=== PATIENT | male | born 1950 | race Caucasian/White ===

== ENCOUNTER 2019-01-17 12:24 | Observation (INO) ==
[2019-01-17] MEDS ORDERED: ASPIRIN PO ONE (12:36)
--- NOTE | 2019-01-17 13:04 | Diag Imaging Result Doc PS360 ---
EXAM: CHEST-2 VIEWS 01/17/2019 HISTORY: chest pain TECHNIQUE: PA and lateral chest COMMENT: There is no evidence of acute cardiac or pulmonary disease. Compared to 08/12/2017 there has been no significant change. IMPRESSION: Stable chest. Electronically signed by Dwight Garvin 01/17/2019 1:01 PM
[2019-01-17] MEDS ORDERED: PEPCID IV ONE (13:13)
[2019-01-17] MEDS ORDERED: TYLENOL PO ONE (13:13)
[2019-01-17] MEDS ORDERED: NS 1,000 ML IV ONE (13:14)
[2019-01-17] MEDS ORDERED: SODIUM CHLORIDE 0.9% INJ ONE ×2 (13:14)
[2019-01-17] MEDS ORDERED: PROTONIX IV ONE (13:14)
--- NOTE | 2019-01-17 13:15 | EKG Report ---
Test Performed on : 01/17/2019 12:27:50 PM Test Reason : CP Blood Pressure : / mmHG Vent. Rate : 103 BPM Atrial Rate : 103 BPM P-R Int : 150 ms QRS Dur : 094 ms QT Int : 334 ms P-R-T Axes : 048 023 035 degrees QTc Int : 437 ms Sinus tachycardia. Otherwise normal ECG When compared with ECG of 12-APR-2017 12:22, No significant change was found Unconfirmed Result
[2019-01-17 13:24] LABS: BASO% 0.4 % (0.0-0.8); EOS% 5.2 % (0.0-10.0); HEMATOCRIT 42.8 % (42.0-52.0); HEMOGLOBIN 14.7 g/dL (14.0-18.0); IMM GRAN% 0.2 % (0.0-0.5); LYMPH# 1.89 X1000 (1.2-3.4); LYMPH% 23.2 % (20.5-51.1); MCH 29.7 PG (27-31); MCHC 34.3 g/dL (33-37); MCV 86.5 FL (81-99); MONO# 0.91 X1000 (0.11-0.59); MONO% 11.2 % (1.7-9.3); MPV 10.4 FL (7.4-10.4); NEUT# 4.87 X1000 (1.4-6.5); NEUT% 59.8 % (42.2-75.2); PLT 272 X1000 (130-400); RBC 4.95 XMIL (4.7-6.1); WBC 8.14 X1000 (4.8-10.8)
[2019-01-17 13:25] LABS: BASO# 0.03 X1000 (0.0-0.2); EOS# 0.42 X1000 (0.0-0.7); IMM GRAN# 0.02 X1000 (0.0-0.04)
[2019-01-17 13:43] LABS: INR 0.94; PROTIME 13.4 Seconds (11.0-16.0)
[2019-01-17 13:44] LABS: PTT 30.3 Seconds (22.3-41.8)
[2019-01-17 13:48] LABS: AGAP 13; ALBUMIN 4.5 g/dL (3.5-5.0); ALKALINE PHOSPHATASE 73 U/L (32-122); BUN 21 mg/dL (8-22); CALCIUM 9.4 mg/dL (8.8-10.2); CHLORIDE 99 mmol/L (98-107); COSMO 277; ESTIMATED GFR > 60; GLUCOSE 98 mg/dL (70-104); GOT 17 U/L (10-34); GPT 13 U/L (10-44); POTASSIUM 3.5 mmol/L (3.5-5.1); SODIUM 137 mmol/L (136-145); TCO2 25 mmol/L (25-35); TOTAL BILIRUBIN 0.43 mg/dL (0.20-1.00); TOTAL PROTEIN 6.8 g/dL (6.3-8.3)
[2019-01-17 13:50] LABS: CK PROFILE 273 U/L (24-204)
[2019-01-17 14:03] LABS: CK INDEX 2.2 (0.0-2.5); CK-MB 6.04 ng/mL (0.0-5.0)
--- NOTE | 2019-01-17 14:40 | PROVIDER DOCUMENTATION ---
This chart was entered by Coty Shay Scribe, acting as scribe for Nilay De Leon MD. HPI-Chest Pain - General Chief Complaint: Chest Pain Stated Complaint: CP/JAW PAIN Time Seen by Provider: 01/17/19 13:05 Source: patient Allergies/Adverse Reactions: Patient Allergies Allergy/AdvReac Type Severity Reaction Status Date / Time hydrocodone Allergy Unknown Verified 01/17/19 12:40 morphine Allergy Unknown Verified 01/17/19 12:40 propoxyphene [From Darvon] Allergy Unknown Verified 01/17/19 12:40 sodium pentathol Allergy Unknown Uncoded 01/17/19 12:35 Home Medications: Home Medication List Medication Instructions Recorded Confirmed Last Taken Type Losartan/Hydrochlorothiazide 1 each PO DAILY 03/25/12 04/12/17 04/11/17 21:00 History [Hyzaar 100-12.5 Tablet] Tadalafil [Cialis] 2.5 mg PO HS 03/25/12 04/12/17 04/11/17 21:00 History Potassium Chloride 10 meq PO HS 07/05/15 04/12/17 04/11/17 21:00 History Methocarbamol 750 mg PO HS 04/12/17 04/12/17 04/11/17 21:00 History Naproxen/Esomeprazole Mag [Vimovo 1 tab PO BID 04/12/17 04/12/17 04/11/17 21:[address] 500-20 mg Tablet] Zolpidem [Ambien] 10 mg PO QHS 04/12/17 04/12/17 04/11/17 21:00 History Azithromycin [Zithromax Z-Long] 250 mg PO DIRECTED #1 pkg 08/12/17 Unknown Rx Guaifenesin/D-Methorphan Hb/PE 1 ea PO Q4-6H PRN PRN #20 tab 08/12/17 Unknown Rx [Deconex Dmx Tablet] Prednisone 20 mg PO DAILY #6 tab 08/12/17 Unknown Rx Methocarbamol [Robaxin-750] 750 mg PO Q6HR PRN #20 tab 05/08/18 Unknown Rx - History of Present Illness-CP Nature of Presenting Problem: [id number] presents to ED cc sharp chest pain that started at 11:30am while at work, subsided and then pain in his left ear and shoulder about 10mins later. Pt also reports SOB, severe headache and fatigue. Pt denies N/V/D. Upon exam pt reports only his head hurts. Pt has hx of HTN, GERD and arthritis. Pt is A&Ox3 and n ontoxic in appearance. 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 denies: chills, fever Eyes: reports: no symptoms reported Ears, Nose, Mouth & Throat: reports: no symptoms reported Cardiovascular: reports: see HPI, chest pain. denies: irregular heart rate, palpitations, syncope Respiratory: reports: see HPI, shortness of breath. denies: cough, wheezing Gastrointestinal: reports: no symptoms reported Genitourinary: reports: no symptoms reported Musculoskeletal: reports: no symptoms reported Integumentary: reports: no symptoms reported Neurological: reports: see HPI, headache/migraines. denies: seizure, syncope Psychiatric: reports: no symptoms reported Endocrine: reports: no symptoms reported Hematologic/Lymphatic: reports: no symptoms reported Allergic/Immunologic: reports: no symptoms reported All Other Systems: Reviewed and Negative Past History - Adult - PAST MEDICAL HISTORY-ADULT Review of Records: reports: Nursing Assessment Review, Medications Reviewed, Social history reviewed & non-contributory. Major Childhood Illnesses: reports: denies history Cardiovascular: reports: HTN Respiratory: reports: denies history Gastrointestinal: reports: GERD Obstetrical/Gynecological: reports: denies history Genitourinary: reports: denies history Musculoskeletal: reports: denies history Neurological: reports: denies history Psychiatric: reports: denies history Endocrine/Immune: reports: denies history Other Conditions: reports: denies history - PRIOR SURGERIES/PROCEDURES Surgical/Procedure History: reports: reviewed, not pertinent, orthopedic (extremity), back/neck (back) - IMMUNIZATION STATUS Childhood Immunizations: See Nurse Assessment Flu Vaccine: See Nurse Assessment - FAMILY HISTORY Family History: reviewed, not pertinent Physical Exam-General - PHYSICAL EXAM-ADULT Initial Vital Signs Reviewed: Yes - CONSTITUTIONAL General Appearance: appears well, alert, no apparent distress. negative: anxious, combative - EYES Eyes: PERRL/EOMI, pink conjunctivae. negative: photophobia - HEAD, EARS, NOSE, MOUTH & THROAT HENMT: normocephalic/atraumatic, moist mucous membranes. negative: angioedema - NECK Neck: non-tender, full range of motion, supple, normal inspection. negative: C- spine tenderness - RESPIRATORY Respiratory: chest non-tender, lungs clear, normal breath sounds, no pleuratic chest pain, no respiratory distress, no accessory muscle use. negative: crackles, rales, rhonchi, stridor, wheezing - CARDIOVASCULAR Cardiovascular: normal peripheral pulses, regular rate, rhythm, no edema, no gallop, no JVD, no murmur. negative: bradycardia, tachycardia - GASTROINTESTINAL (ABDOMEN) Abdominal Exam: normal bowel sounds, soft, no organomegaly, no pulsatile mass, tenderness (LLQ). negative: non tender, distended, guarding, rigid, rebound, hernia, mass - MUSCULOSKELETAL Extremity: normal range of motion, non-tender, normal gait, normal inspection, no pedal edema, no calf tenderness, normal capillary refill, pelvis stable. negative: deformity, erythema, swelling - SKIN Integumentary: normal color, normal turgor, warm/dry. negative: cyanosis, diaphoresis, ecchymosis, erythema, jaundice - PSYCHIATRIC Psych/Mental Status: normal mood/affect, normal thought content, normal thought process, oriented x 3. negative: disoriented x 3, anxious, disheveled, depressed affect Progress - PLAN OF CARE/RESULTS Progress/Plan/Lab Results: Vital Signs - 8 hr 01/17/19 12:31 Temperature 97.9 F Pulse Rate 89 Respiratory Rate 18 Blood Pressure 130/82 O2 Sat by Pulse Oximetry 96 Laboratory Results - last 24 hr 01/17/19 01/17/19 01/17/19 12:50 12:50 12:50 WBC 8.14 RBC 4.95 Hgb 14.7 Hct 42.8 MCV 86.5 MCH 29.7 MCHC 34.3 RDW Std Deviation 13.0 Plt Count 272 MPV 10.4 Immature Gran % (Auto) 0.2 Neut % (Auto) 59.8 Lymph % (Auto) 23.2 [place] % (Auto) 11.2 H Eos % (Auto) 5.2 Baso % (Auto) 0.4 Immature Gran # (Auto) 0.02 Neut # (Auto) 4.87 Lymph # (Auto) 1.89 [place] # (Auto) 0.91 H Eos # (Auto) 0.42 Baso # (Auto) 0.03 PT INR PTT (Actin FS) Sodium 137 Potassium 3.5 Chloride 99 Carbon Dioxide 25 Anion Gap 13 BUN 21 Creatinine 1.0 Estimated GFR/1.73 m2 > 60 BUN/Creatinine Ratio 21 Glucose 98 Calculated Osmolality 277 Calcium 9.4 Total Bilirubin 0.43 AST 17 ALT 13 Alkaline Phosphatase 73 Creatine Kinase 273 H Creatine Kinase Index 2.2 CK-MB (CK-2) 6.04 H Troponin T Mwp-M-Cdyqjhsaobf Pept 13 Total Protein 6.8 Albumin 4.5 Globulin 2.3 Albumin/Globulin Ratio 2.0 01/17/19 01/17/19 12:50 12:50 WBC RBC Hgb Hct MCV MCH MCHC RDW Std Deviation Plt Count MPV Immature Gran % (Auto) Neut % (Auto) Lymph % (Auto) [place] % (Auto) Eos % (Auto) Baso % (Auto) Immature Gran # (Auto) Neut # (Auto) Lymph # (Auto) [place] # (Auto) Eos # (Auto) Baso # (Auto) PT 13.4 INR 0.94 PTT (Actin FS) 30.3 Sodium Potassium Chloride Carbon Dioxide Anion Gap BUN Creatinine Estimated GFR/1.73 m2 BUN/Creatinine Ratio Glucose Calculated Osmolality Calcium Total Bilirubin AST ALT Alkaline Phosphatase Creatine Kinase Creatine Kinase Index CK-MB (CK-2) Troponin T < 0.010 Tia-X-Frqkhmbcefk Pept Total Protein Albumin Globulin Albumin/Globulin Ratio Orders Category Date Time Status Cardiac Monitoring DIRECTED Care 01/17/19 12:37 Active Oxygen Therapy- ED Nursing DIRECTED Care 01/17/19 12:37 Active Saline Loc NOW Care 01/17/19 12:37 Active CHEST-2 VIEWS [RAD] Stat Exams 01/17/19 12:37 Completed CBC WITH ELECTRONIC DIFF [HEME] Stat Lab 01/17/19 12:50 Completed CK PROFILE [SP CHEM] Stat Lab 01/17/19 12:50 Completed COMPREHENSIVE METABOLIC PANEL [CHEM] Stat Lab 01/17/19 12:50 Completed PRO B-NATRIURETIC PEPTIDE Stat Lab 01/17/19 12:50 Completed PROTIME WITH INR [COAG] Stat Lab 01/17/19 12:50 Completed PTT [COAG] Stat Lab 01/17/19 12:50 Completed TROPONIN T Stat Lab 01/17/19 12:50 Completed 0.9% Sodium Chloride Inj [Ns] 1,000 ml Med 01/17/19 13:14 Active IV 200 mls/hr Acetaminophen [Tylenol] Med 01/17/19 13:13 Discontinued 650 mg PO NOW ONE Aspirin Med 01/17/19 12:36 Discontinued 325 mg PO NOW ONE Famotidine [Pepcid] Med 01/17/19 13:13 Discontinued 20 mg IV NOW ONE Pantoprazole [Protonix] Med 01/17/19 13:14 Discontinued 40 mg IV NOW ONE Sodium Chloride 0.9% Med 01/17/19 13:14 Discontinued 10 ml INJ NOW ONE Sodium Chloride 0.9% Med 01/17/19 13:14 Discontinued 5 - 10 ml INJ NOW ONE CP/SOB/Palp >45 yrs of Age Stat Oth 01/17/19 12:36 Ordered EKG [EKG] Stat Ther 01/17/19 12:37 Draft Result Diagrams: 01/17/19 12:50 01/17/19 12:50 - EKG 1 Time of EKG reading by physician:: 12:53 EKG Read and Signed by:: Nilay De Leon EKG Interpretation (*Must complete 3 of following elements*): Normal Rate: 103 Rhythm: sinus tachycardia QRS: normal MD Interval: normal - XRAY 1 XRAY: Bilateral XRAY Study: Chest Impression: See EMR Report (IMPRESSION: Stable chest. Electronically signed by Dwight Garvin 01/17/2019 1:01 PM) - CONSULTS/PCP/HOSPITALIST Notification #1 *Consult/PCP/Hospitalist*: MIMI UJDGE FOR DR HENDRICKS Time Discussed: 14:38 Consult Disposition: Admit Departure - Departure Date of Disposition Decision: 01/17/19 Time of Disposition Decision: 14:39 DIAGNOSIS: Chest pain Disposition: ADMITTED INPATIENT 09 Certified Medical Emergency: Emergent Condition: Stable Additional Freetext Instructions: ED Follow Up Instructions: You have been treated by a care provider in the Emergency Department. These instructions are being provided to you so you can have an understanding of how to care for yourself upon discharge. Upon discharge from the Emergency Department, you are responsible for making arrangements for follow-up care by a physician of your choice. Take all prescribed medications as directed. Return to the Emergency Department immediately for any new or worsening symptoms. You may call the Physician Referral phone number at [phone] to obtain a list of Physicians who are taking new patients. Referrals and Follow-Ups: Mickey Mary, [Primary Care Provider] - - Critical Care Note This patient required my direct & personal management of CC.: No Attestation - Physician/ SHALONDA Attestation Patient care was provided by Advanced Practice Provider:: No The physician spent face to face time with patient:: Yes Advanced Practice Provider documentation review:: Supervising physician onsite and consulted in the evaluation and care of this patient. The physician did have a face to face encounter with the patient. This chart was documented by the indicated scribe, (Coty Shay Scribe) and accurately reflects the services I performed and decisions made by me, Nilay De Leon MD, as attested by the provider's signature.
[2019-01-17] MEDS ORDERED: NITROGLYCERIN SL PRN (15:12)
[2019-01-17] MEDS ORDERED: TYLENOL PO PRN (15:12)
[2019-01-17] MEDS ORDERED: ZOFRAN IV PRN (15:12)
[2019-01-17 16:35] LABS: CK INDEX 2.2 (0.0-2.5); CK-MB 6.05 ng/mL (0.0-5.0)
--- NOTE | 2019-01-17 17:45 | ECHO REPORT ---
ORDER DATE: 01/17/2019 INDICATION: Patient with chest pain. M-MODE MEASUREMENTS: Left ventricle end diastole: 4.9. Left ventricle end systole: 3.5. Posterior wall: 1.0. Interventricular septum: 1.0. Left atrium: 4.2. Aortic diameter: 3.7. SUMMARY OF 2-DIMENSIONAL IMAGIN. Left ventricular function is normal. Ejection fraction is estimated at 55%. The study was difficult, and Optison was added to optimize visualization of the endocardium. 2. The right ventricle appears to be at the upper limits of normal. 3. The right atrium and left atrium appear to be grossly within normal range. 4. The mitral valve looks normal. Color flow mapping unremarkable. 5. Pulsed wave Doppler of mitral inflow shows normal E/A ratio. 6. Tissue Doppler of septal and lateral mitral annulus averages 10 cm. 7. There is no diastolic dysfunction. 8. The tricuspid valve shows a very mild degree of regurgitation. 9. The inferior vena cava is suboptimally visualized. 10.Pulmonary pressure is on the order of 26-31 mmHg. 11.The aortic valve has 3 cusps. Color flow mapping unremarkable. There is no aortic stenosis. No regurgitation. 12.The pulmonic valve is grossly normal. There is no pericardial effusion. No mass and no thrombus. 13.The inferior vena cava is not dilated. SUMMARY: This study shows: 1. Normal left ventricular systolic function with ejection fraction of 55%. 2. Normal diastolic function. 3. Unremarkable aortic, mitral, pulmonic and tricuspid valves. 4. Pulmonary pressure 26 mmHg. 5. There is no diastolic dysfunction. No mass, no thrombus. Clinical correlation recommended. cc: Cj Henry MD
[2019-01-17] MEDS: LOVENOX SUBQ SCH (17:47)
--- NOTE | 2019-01-17 18:07 | HISTORY AND PHYSICAL ---
PRIMARY CARE PROVIDER: Dr. Mickey Mary CHIEF COMPLAINT: Chest pain. HISTORY OF PRESENT ILLNESS: Mr. 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 He reports at 11:30 this morning he had a sharp pain that went through his chest. It felt like an ice pick was stabbing him. It lasted 3 to 4 seconds and he had radiating pain up to his ear and then into his left ear into his left shoulder. This occurred over 3 different episodes that lasted all of 30 minutes total. He reported being tired, having a headache and difficulty walking. 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 He denies any dizziness, nausea, vomiting, heart palpitation. He has been chest pain free since this morning. Nothing made it better or worse. Workup in the ED, 1st set of troponins were negative. EKG showed normal sinus rhythm. He does have a strong family history of coronary artery disease. We will admit him on observation status, have Cardiology assess him tomorrow and set him up for an echocardiogram and a stress test on Sunday morning and continue to trend his cardiac enzymes. REVIEW OF SYSTEMS: Twelve-point review of systems completely negative except for those mentioned in HPI. mentioned his stools have changed over the last month from regular daily to 5-6 times a day described as pencil size, no bright red blood, dark blood, diarrhea or constipation. 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 FAMILY HISTORY: Sister with a massive HI who at the age of 55. Father with a HI, at the age of 70. Mom with unknown type of metastatic cancer who in 2007. Uncle with prostate cancer. SOCIAL HISTORY: He lives with his . He works in a warehouse. He quit smoking over 15 years ago. No alcohol or illicit drug use. ALLERGIES: Morphine, hydrocodone, Darvon and sodium Pentothal. HOME MEDICATIONS: Have not been verified and all he can remember off the top of his head is he takes 2 blood pressure medications, Cialis daily, Nexium, Mobic, potassium. PHYSICAL EXAMINATION: VITAL SIGNS: Temperature 97.9 degrees heart rate 84, respirations 22, blood pressure is 130/87, O2 is initially 96% on room air. GENERAL: Mr. Chavez is a pleasant, 68-year-old gentleman who is sitting up in the stretcher in no acute distress. HEENT: Atraumatic, normocephalic. PERRL. NECK: Supple. Trachea midline. CARDIOVASCULAR: S1, S2 appreciated. No murmurs, gallops, rubs noted. RESPIRATORY: Lung sounds clear bilaterally. GASTROINTESTINAL: Soft, nontender, nondistended. Positive bowel sounds 4 quadrants. EXTREMITIES: Negative for edema. No signs of clubbing or cyanosis. NEUROLOGIC: No focal deficits noted. DIAGNOSTIC DATA: X-ray is stable chest. Initial EKG showed sinus tachycardia at 103 beats per minute. LABORATORY DATA: White count 8, hemoglobin and hematocrit 14 and 42, platelet count is 272,000. Sodium 137, potassium 3.5, BUN 21, creatinine 1, blood glucose 98. CK was 273, CK-MB 6.04, troponin less than 0.010. ASSESSMENT AND PLAN: 1. Chest pain rule out. The patient does have a strong family history of cardiac disease. First set of troponin was negative. We will continue on daily aspirin. Check a lipid profile. Continue with nitroglycerin p.r.n. Repeat EKG in the a.m. Check an echocardiogram. Set him up for a stress test on Sunday morning. We will consult Cardiology in the a.m. 2. Hypertension. Continue home medications when verified. 3. Gastroesophageal reflux disease. Continue on proton pump inhibitors. 4. Migraines. Aware. 5. Cerebrovascular accident 12 years ago with some left hand residual weakness. 6. Sinus and allergies. 7. Question change in bowel patten over a month to normal daily to 5-6 times/day pencil size, may need outpatient follow up with GI when cardiac issues looked into 8. Further recommendation to follow physician evaluation, laboratory and diagnostic data. Dictated by EUNICE Sánchez for Dioni Boothe MD Addendum: Patient seen and examined by myself. Agree with EUNICE note. It reflects my assessment and plan. Patient is being admitted to hospital for chest pain. Will trend cardiac enzymes and will order an echocardiogram. Will place him on telemetry. Will monitor patient closely. cc: MD Mickey Bonilla, DO MUÑOZD
--- NOTE | 2019-01-17 19:53 | CARDIOLOGY CONSULTATION ---
DATE: 01/17/2019 REASON FOR CONSULTATION: Cardiology was consulted for chest pain. HISTORY OF PRESENT ILLNESS: Mr. 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 Not associated with any diaphoresis but associated with fatigue and tiredness. He came to the emergency room, was admitted. Electrocardiogram revealed normal sinus rhythm. There was no acute ST-T changes. First set of cardiac enzymes are negative. Prior to this, he has not had similar episodes of chest pain. He has history of hypertension, migraine headaches, and has had significant surgeries in his lower extremities in the past. There are no palpitations. There is no dizziness or syncope. REVIEW OF SYSTEM: A 14-point review of systems was done:Gastrointestinal: There is no history of nausea, vomiting, diarrhea. There is no history of hematemesis or melena. Central nervous system: No focal weakness to suggest a CVA or TIA. Genitourinary: There is no dysuria or hematuria. PAST MEDICAL HISTORY: 1. Hypertension. 2. Migraine. 3. TIA in the past. 4. Joint pains. PAST SURGICAL HISTORY: 1. Bilateral carpal tunnel. 2. Amputation of left foot toes 1 and 2. 3. Right knee replacement. 4. Right shoulder arthroscopy. 5. Back surgery. 6. Cervical disk surgery. ALLERGIES: Hydrocodone, morphine, sodium Pentothal, Darvon. HOME MEDICATIONS: Include losartan hydrochlorothiazide, Cialis, methocarbamol, Naprosyn, Ambien. PHYSICAL EXAMINATION: Vital Signs: Blood pressure 130/87. Cardiovascular System: Normal jugular venous pressure. There no thyromegaly. No carotid bruit. First and second heart sounds were heard. There is no S3, S4, or gallop. Respiratory system: Normal air entry. There is no crepitations or rhonchi. Abdomen: Soft, nontender. There was no guarding or rigidity. Bowel sounds were heard. Central nervous system: Alert and oriented. He was moving all 4 extremities. Extremities: Examination of extremities revealed no pedal edema. LABORATORY DATA: Sodium 137, potassium 3.7, BUN 21, creatinine 1. Troponin was negative. CK-MB 6 with an index of 2.2. WBC 8.14. Hemoglobin 14.7. Hematocrit 42. Platelet count of 272,000. Chest x-ray was unremarkable. ASSESSMENT AND PLAN: Mr. Mickey Chavez is a 68-year-old gentleman with history of hypertension, migraine, multiple joint pains and arthritis who comes with complaints of retrosternal chest discomfort with radiation to the left shoulder and to the left jaw. Currently patient does not complain of any chest pain. PLAN: 1. We will get an echocardiogram to assess cardiac and valvular function. We will get serial cardiac enzymes to rule out infarction. Once his cardiac enzymes are negative we will plan for a stress test to assess for and rule out ischemia. 2. Hypertension. Continue with his medications. 3. He has migraine attacks. Continue with the same. 4. He has gastroesophageal reflux disease. He is on Pepcid and NSAIDs as well for his joint pains. I have not made any other changes to his medication. Thank you for the consult. We will follow hospital course. cc: Mayito Arriaga MD
[2019-01-17] MEDS: PEPCID PO SCH (21:32)
[2019-01-18 00:56] LABS: CK INDEX 2.4 (0.0-2.5); CK-MB 5.09 ng/mL (0.0-5.0)
[2019-01-18 06:34] LABS: BASO# 0.04 X1000 (0.0-0.2); BASO% 0.4 % (0.0-0.8); EOS# 0.38 X1000 (0.0-0.7); EOS% 4.2 % (0.0-10.0); HEMATOCRIT 46.1 % (42.0-52.0); HEMOGLOBIN 15.8 g/dL (14.0-18.0); LYMPH# 1.57 X1000 (1.2-3.4); LYMPH% 17.4 % (20.5-51.1); MCH 30.2 PG (27-31); MCHC 34.3 g/dL (33-37); MCV 88.1 FL (81-99); MONO# 0.86 X1000 (0.11-0.59); MONO% 9.6 % (1.7-9.3); MPV 10.3 FL (7.4-10.4); NEUT# 6.15 X1000 (1.4-6.5); NEUT% 68.4 % (42.2-75.2); PLT 229 X1000 (130-400); RBC 5.23 XMIL (4.7-6.1); RDW 13.1 % (11.5-14.5)
--- NOTE | 2019-01-18 06:52 | EKG Report ---
Test Performed on : 01/18/2019 06:16:04 AM Test Reason : CP Blood Pressure : / mmHG Vent. Rate : 071 BPM Atrial Rate : 071 BPM P-R Int : 168 ms QRS Dur : 098 ms QT Int : 382 ms P-R-T Axes : 041 027 051 degrees QTc Int : 415 ms Normal sinus rhythm. Normal ECG When compared with ECG of 17-JAN-2019 12:27, (Unconfirmed) No significant change was found Confirmed by Jake Woodson MD ([id number]) on 01/18/2019 9:14:24 PM
[2019-01-18 06:54] LABS: AGAP 9; BUN 20 mg/dL (8-22); CALCIUM 9.2 mg/dL (8.8-10.2); CHLORIDE 98 mmol/L (98-107); CHOLESTEROL 159 mg/dL (0-200); COSMO 271; CREATININE 1.1 mg/dL (0.7-1.2); ESTIMATED GFR > 60; GLUCOSE 109 mg/dL (70-104); HDL 29 mg/dL (35-55); LDL 98 mg/dL; MAGNESIUM 2.1 mg/dL (1.5-2.7); POTASSIUM 3.7 mmol/L (3.5-5.1); SODIUM 134 mmol/L (136-145); TCO2 27 mmol/L (25-35); TRIGLYCERIDES 159 mg/dL (39-160); VLDL 32 mg/dL
[2019-01-18] MEDS ORDERED: PRILOSEC PO SCH (07:00)
--- NOTE | 2019-01-18 07:37 | Diag Imaging Result Doc PS360 ---
CHEST-PORTABLE - 01/18/2019 INDICATION: Chest Pain COMPARISON: 01/17/2019 FINDINGS: The lungs are normally expanded and clear. Heart size and mediastinal contours are normal. No pneumothorax or pleural effusion. IMPRESSION: Negative exam. Electronically signed by Johan Ackerman 01/18/2019 7:35 AM
[2019-01-18] MEDS: PEPCID PO SCH ×2 (09:42→20:26)
[2019-01-18] MEDS: ASPIRIN PO SCH (09:42)
[2019-01-18] MEDS: DILAUDID IV PRN (10:33)
--- NOTE | 2019-01-18 16:07 | EKG Report ---
Test Performed on : 01/18/2019 10:44:27 AM Test Reason : cp Blood Pressure : / mmHG Vent. Rate : 091 BPM Atrial Rate : 091 BPM P-R Int : 162 ms QRS Dur : 098 ms QT Int : 346 ms P-R-T Axes : 069 025 033 degrees QTc Int : 425 ms Normal sinus rhythm. Normal ECG When compared with ECG of 18-JAN-2019 06:16, (Unconfirmed) No significant change was found Confirmed by Jake Woodson MD ([id number]) on 01/18/2019 9:15:02 PM
[2019-01-18] MEDS: LOVENOX SUBQ SCH (17:12)
--- NOTE | 2019-01-18 17:34 | PROGRESS NOTE ---
DATE: 01/18/2019 SUBJECTIVE: The patient is still having some intermittent chest pain. OBJECTIVE: vital signs: Blood pressure 135/80, heart rate of 85, respiratory rate 20, temperature 97 degrees, and O2 saturation of 94% on room air. Cardiovascular: Regular rate and rhythm. Pulmonary: Bilateral breath sounds. Clear to auscultation. Gastrointestinal: Soft, nontender, nondistended. Bowel sounds are positive. LABORATORY DATA: Really unremarkable. STUDIES: Echocardiogram showed an EF of 55%, normal diastolic dysfunction. It was really normal. PROBLEM LIST: 1. Chest pain, possible unstable angina. We are waiting for a stress test on Sunday and we are in a holding pattern until then. 2. Hypertension. We will continue his regular medications and follow. 3. Gastroesophageal reflux disease. We will continue Pepcid and avoid presumably NSAIDS and continue to monitor. DISPOSITION: Once we can get noninvasive testing completed, then we should be able to work on getting him home. If testing is negative, then we will decide to continue treatment at home. Consider outpatient GI evaluation. cc: Humberto Green MD
[2019-01-18 19:36] LABS: CK INDEX 1.6 (0.0-2.5); CK-MB 3.75 ng/mL (0.0-5.0)
[2019-01-18] MEDS: ROBAXIN PO SCH (20:26)
[2019-01-18] MEDS: FLOMAX PO SCH (20:26)
[2019-01-19] MEDS: ASPIRIN PO SCH (08:16)
[2019-01-19] MEDS: PEPCID PO SCH ×2 (08:16→21:13)
[2019-01-19] MEDS ORDERED: NEXIUM PO SCH (09:00)
[2019-01-19] MEDS: MOBIC PO SCH (17:02)
[2019-01-19] MEDS: KLOR-CON PO SCH (17:02)
[2019-01-19] MEDS: NS 1,000 ML IV SCH (17:03)
[2019-01-19] MEDS: LOVENOX SUBQ SCH (17:03)
--- NOTE | 2019-01-19 17:10 | PROGRESS NOTE ---
DATE: 01/19/2019 SUBJECTIVE: He really has no major complaints. OBJECTIVE: Vitals: Blood pressure is 136/78, heart rate of 80, respiratory rate 18, temperature 97.9 degrees, 97% on room air. Cardiovascular: Regular rate and rhythm. Pulmonary: Bilateral breath sounds. Clear to auscultation. GI: Soft, nontender, nondistended. Bowel sounds are positive. LABORATORY DATA: White count is 9, hemoglobin and hematocrit 15 and 46, platelets 229. Basic was normal. LDL was only 98. PROBLEM LIST: 1. Atypical chest pain. His workup has been essentially negative, but we will continue to monitor. We are awaiting stress test tomorrow. 2. Hypertension. Appears to be stable. Continue medications. 3. Gastroesophageal reflux disease. He is on Prilosec which we may bump up now. He is specifically requesting his Mobic, which we will resume, but if his cardiac workup is negative, we will send him to GI for evaluation for EGD. DISPOSITION: Anticipate discharge tomorrow if stable. cc: Humberto Green MD
[2019-01-19] MEDS ORDERED: PNEUMOVAX 23 IM ONE (19:00)
[2019-01-19] MEDS: FLOMAX PO SCH (21:12)
[2019-01-19] MEDS: ROBAXIN PO SCH (21:13)
[2019-01-20] MEDS ORDERED: PRILOSEC PO SCH (07:00)
[2019-01-20] MEDS ORDERED: CARDIZEM CD PO SCH (09:00)
[2019-01-20] MEDS ORDERED: HYDROCHLOROTHIAZIDE PO SCH (09:00)
[2019-01-20] MEDS ORDERED: MICARDIS PO SCH (09:00)
[2019-01-20] MEDS: NS 1,000 ML IV SCH (09:33)
[2019-01-20] MEDS ORDERED: LEXISCAN ONE (13:00)
--- NOTE | 2019-01-20 15:04 | Diag Imaging Result Document ---
PROCEDURE NAME: MYOCARDIAL PERF SCAN, STR/REST - 01/20/2019 INDICATION: This is a 68-year-old male with chest pain. DESCRIPTION OF PROCEDURE: The patient came into the nuclear lab and received a rest injection of technetium 99 sestamibi 15.3 mCi. Multiple tomographic views of the cardiac structures were obtained at rest. Subsequently the patient underwent a Lexiscan infusion 0.4 mg and at peak infusion was injected with technetium 99 sestamibi 42.3 mCi. Multiple tomographic views of the cardiac structures were obtained following completion of the exercise protocol. SUMMARY OF ELECTROCARDIOGRAPHIC PORTION OF THE STUDY: Resting ECG shows sinus rhythm at rate of 75 beats per minute. Resting blood pressure is 136/77 Resting ECG shows sinus rhythm with an isolated PVC. During the infusion, the heart rate increased to a maximum of 104 beats per minute. Blood pressure went up to 139/67. The ECG showed no significant changes. The patient reported no chest pain, shortness of breath or palpitations. Occasional PVCs were noted. Following the completion of the test, the heart rate and blood pressure returned back to baseline. CONCLUSIONS: In summary, electrocardiographic response to walking Lexiscan protocol is deemed to be unremarkable. SUMMARY OF MYOCARDIAL PERFUSION PORTION OF THE STUDY: Poststress tomographic views of the left ventricle showed normal homogeneous distribution of radiotracer throughout the entire left ventricular myocardium. There is no evidence of any postexercise defect. The rest images showed normal perfusion. The polar plots revealed the same. There is no evidence of neither inducible ischemia nor myocardial scar. Gated SPECT shows normal left ventricular systolic function. Ejection fraction is estimated at 74% with normal ventricular volumes and no wall motion abnormality. Lung/heart ratio is normal. TID is normal. CONCLUSIONS: In summary, this study showed: 1. Unremarkable electrocardiographic response to infusion of Lexiscan. 2. Normal poststress myocardial perfusion scan. There is no scintigraphic evidence of pharmacologically induced myocardial ischemia. 3. Normal left ventricular systolic function. Ejection fraction is estimated at 74% with normal ventricular volumes and no wall motion abnormality. 4. This study represents a low risk for ischemic events. cc: Cj Henry MD
[2019-01-20 15:43] VITALS: BP 141/71
[2019-01-20] MEDS: KLOR-CON PO SCH (15:45)
[2019-01-20] MEDS: PEPCID PO SCH (15:46)
[2019-01-20] MEDS: ASPIRIN PO SCH (15:46)
[2019-01-20] MEDS: DILAUDID IV PRN (15:47)
[2019-01-20] MEDS: LOVENOX SUBQ SCH (15:47)
[2019-01-20] MEDS: MOBIC PO SCH (15:47)
[2019-01-20] MEDS ORDERED: G.I. COCKTAIL PO ONE (16:24)
--- NOTE | 2019-01-21 13:42 | DISCHARGE SUMMARY ---
ADMISSION DATE: 01/17/2019 DISCHARGE DATE: 01/20/2019 DISCHARGE DIAGNOSES: 1. Atypical chest pain likely noncardiac. 2. Gastroesophageal reflux disease, possibly uncontrolled. PROCEDURES: None. CONSULTATIONS: Cardiology. HISTORY: Briefly, this is a 68-year-old male with history of hypertension who comes in with chest pain left-sided. His workup was negative. EKG and cardiac enzymes. Cardiology was consulted, and they recommended a cardiac workup. He underwent myocardial perfusion scan, which showed no radiotracer deficits or defects. EF was 74%, and negative for any reversibility. His echocardiogram showed an EF of 55%. Otherwise unremarkable. DISCHARGE PLAN: He was discharged on the . We will encourage him to follow up with Dr. Karyna NAGEL for endoscopy. I increased his Nexium to twice a day, and continue Flomax 0.4 daily, Cardizem 120 daily, Soma 750 at bedtime, telmisartan hydrochlorothiazide 40/12.5, Klor-Con 20 daily, and Zantac 150 b.i.d. We will likely at this point, GERD/gastric is the most likely diagnosis. Encouraged him to stop NSAIDs and reflux precautions. Follow up with GI for outpatient endoscopy. cc: MD Mickey Lyn DO Manish Arora, MD MTDTyson
== END 2019-01-20 17:27 | disposition home or self-care (01) ==
LOC: 4N 12:24 → ED 12:24 → SUATTDRO 12:25
PROVIDERS: ATTEND Internal Medicine
CPT/HCPCS: 71010; 71020; 71045; 71046; 78452; 80048; 80053; 80061; 82550; 82553; 83735; 83880; 84484; 85025; 85610; 85730; 93005; 93010; 93017; 93306; 94761; 96361; 96374; 99285; A9270; A9500; C8929; C9113; J1170; J1650; J2785; J7030; Q9957; S0028; S0164